=== PATIENT | female | born 1945 | race Caucasian/White ===

== ENCOUNTER 2018-05-11 15:44 | Inpatient (IN) | payer MEDICARE, MEDICAID ==
[2018-05-11 16:33] LABS: % BASOPHILS 0.1 % (0.0-2.0); % EOSINOPHILS 1.2 % (0.0-5.0); % MONOCYTES 10.4 % (2.0-10.0); % NEUTROPHILS 67.3 % (40.0-80.0); EOSINOPHILE ABSOLUTE 0.1 Th/cmm (0.1-0.4); HEMATOCRIT 41.8 % (41.0-60); HEMOGLOBIN 13.7 gm/dL (12-16); LYMPHOCYTE ABSOLUTE 1.6 Th/cmm (1.5-3.0); MEAN CELL VOLUME 89.7 fl (81-100); MEAN CORPUSCULAR HEMOGLOBIN 29.5 pg (27.0-31.0); MEAN CORPUSCULAR HGB CONC 32.9 pg (28.0-36.0); MONOCYTE ABSOLUTE 0.8 Th/cmm (0.3-1.0); NEUTROPHILE ABSOLUTE 4.9 Th/cmm (1.8-8.0); PLATELET COUNT 144 Th/cmm (150-400); RED BLOOD COUNT 4.66 Mil/cmm (3.80-5.20); RED CELL DISTRIBUTION WIDTH 12.4 % (11.5-20.0); WHITE BLOOD COUNT 7.4 Th/cmm (4.8-10.8)
[2018-05-11 16:48] LABS: ALB/GLOB RATIO 1.5 (1.0-1.8); ALBUMIN 4.2 gm/dL (3.7-5.3); ALKALINE PHOSPHATASE 56 U/L (34-104); ANION GAP 9.3 (7.0-16.0); BILIRUBIN,TOTAL 0.8 mg/dL (0.3-1.0); BUN - UREA NITROGEN 15 mg/dL (7-25); CHLORIDE 100 mEq/L (98-107); CREATININE - SERUM 0.5 mg/dL (0.6-1.2); GLUCOSE 92 mg/dL (70-105); POTASSIUM SERUM 4.3 mEq/L (3.5-5.1); SGOT 12 U/L (13-39); SGPT/ALT 11 U/L (7-52); SODIUM SERUM 132 mEq/L (136-145); TOTAL PROTEIN,SERUM 7.1 gm/dL (6.0-8.3)
--- NOTE | 2018-05-11 16:59 | ED Physician Chart ---
ED Chief Complaint/HPI - Patient Information Date Seen:: 05/11/18 Time Seen:: 16:12 Chief Complaint:: psychosis History of Present Illness:: this is a 73 yo female female from the long-term who is here for evaluation and treatment because she is combative and agitation. Allergies:: Allergies Allergy/AdvReac Type Severity Reaction Status Date / Time amoxicillin Allergy Verified 05/11/18 16:16 Vitals:: Vital Signs - 8 hr 05/11/18 16:07 Temp 98.3 F HR 85 RR 16 BP 107/65 O2 Sat % 98 Historian:: EMS, Medical Records Review:: Nurse's Note Reviewed, Old Chart Reviewed, Transfer documents Reviewed ED Review of Systems - Review of Systems General/Constitutional: No fever, No chills, No weight loss, No weakness, No diaphoresis, No edema, No loss of appetite, Other (this patient cannot give a review of systems.) Skin: No skin lesions, No rash, No bruising Head: No headache, No light-headedness Eyes: No loss of vision, No pain, No diplopia ENT: No earache, No nasal drainage, No sore throat, No tinnitus Neck: No neck pain, No swelling, No thyromegaly, No stiffness, No mass noted Cardio Vascular: No chest pain, No palpitations, No PND, No orthopnea, No edema Pulmonary: No SOB, No cough, No sputum, No wheezing GI: No nausea, No vomiting, No diarrhea, No pain, No melena, No hematochezia, No constipation, No hematemesis G/U: No dysuria, No frequency, No hematuria Musculoskeletal: No bone or joint pain, No back pain, No muscle pain Endocrine: No polyuria, No polydipsia Psychiatric: No prior psych history, No depression, No anxiety, No suicidal ideation Hematopoietic: No bruising, No lymphadenopathy Allergic/Immuno: No urticaria, No angioedema Neurological: No syncope, No focal symptoms, No weakness, No paresthesia, No headache, No seizure, No dizziness, No confusion, No vertigo ED Past Medical History - Past Medical History Obtainable: Yes Past Medical History: Dyslipidemia, Arthritis, Dementia, Other (etoh abuse) Family History: None Social History: Non Smoker, No Alcohol, No Drug Use, Care Facility Surgical History: None Psychiatricy History: Schizophrenia, Bipolar, Dementia Medication: Reviewed ED Physical Exam - Physical Examination General/Constitutional: Awake, Well-developed, well-nourished, Alert, No distress, GCS 15, Non-toxic appearing, Ambulatory Other Gen/Cons comments:: this patient is confused and combative Head: Atraumatic Eyes: Lids, conjuctiva normal, PERRL, EOMI Skin: Nl inspection, No rash, No skin lesions, No ecchymosis, Well hydrated, No lymphadenopathy ENMT: External ears, nose nl, Nasal exam nl, Lips, teeth, gums nl Neck: Nontender, Full ROM w/o pain, No JVD, No nuchal rigidity, No bruit, No mass, No stridor Respiratory: Nl effort/Exclusion, Clear to Auscultation, No Wheeze/Rhonchi/Rales Cardio Vascular: RRR, No murmur, gallop, rubs, NL S1 S2 GI: No tenderness/rebounding/guarding, No organomegaly, No hernia, Normal BS's, Nondistended, No mass/bruits, No McBurney tenderness : No CVA tenderness Extremities: No tenderness or effusion, Full ROM, normal strength in all extremities, No edema, Normal digits & nails Neuro/Psych: Alert/oriented, DTR's symmetric, Normal sensory exam, Normal motor strength, Judgement/insight normal, Mood normal, Normal gait, No focal deficits Misc: Normal back, No paraspinal tenderness ED Labs/Radiology/EKG Results - Lab Results Results: Laboratory Tests 05/11/18 05/11/18 16:30 16:30 WBC 7.4 RBC 4.66 Hgb 13.7 Hct 41.8 MCV 89.7 MCH 29.5 MCHC Differential 32.9 RDW 12.4 Plt Count 144 L MPV 7.0 Neutrophils % 67.3 Lymphocytes % 21.0 Monocytes % 10.4 H Eosinophils % 1.2 Basophils % 0.1 Sodium 132 L Potassium 4.3 Chloride 100 Carbon Dioxide 27.0 Anion Gap 9.3 BUN 15 Creatinine 0.5 L Est GFR ( Amer) TNP Est GFR (Non-Af Amer) TNP BUN/Creatinine Ratio 30.0 Glucose 92 Calcium 9.0 Total Bilirubin 0.8 AST 12 L ALT 11 Alkaline Phosphatase 56 Total Protein 7.1 Albumin 4.2 Globulin 2.9 Albumin/Globulin Ratio 1.5 - Radiology Results Results: chest x-ray = nad - EKG Interpretations EKG Time:: 16:33 Rate & Rhythm: rate =74, sinus [place]: right axis ED Assessment - Assessment General Assessment: psychosis ED Septic Shock - . Is Septic Shock (SBP<90, OR Lactate>4 mmol\L) present?: No - <6hrs of presentation: Vital Signs: Vital Signs - 8 hr 05/11/18 16:07 Temp 98.3 F HR 85 RR 16 BP 107/65 O2 Sat % 98 ED Reassessment (Disposition) - Reassessment Reassessment Condition:: Unchanged - Diagnosis Diagnosis:: psychosis - Patient Disposition Discharge/Transfer:: Acute Care w/in this hosp Admitting Medical Physician:: Jacob Chang Admitting Psych Physician:: Britt Reyes Condition at Disposition:: Unchanged
[2018-05-11] MEDS ORDERED: Fleet Enema 135 mL RC PRN (19:12)
[2018-05-11] MEDS ORDERED: Magnesium Hydroxide (MOM) 30 mL UDC PO PRN (19:14)
[2018-05-11] MEDS: Atorvastatin Calcium 10 MG TAB PO SCH (20:43)
--- NOTE | 2018-05-12 09:02 | Diagnostic Imaging Report ---
CHEST X-RAY: AP view INDICATION: pain COMPARISON: None FINDINGS: There is elevation of the right hemidiaphragm. Chronic lung changes are noted. There is no focal consolidation or pleural effusions The heart is normal in size. Atherosclerotic vascular disease is noted. Degenerative changes spine and shoulder joints are noted. 1 cm density seen projecting along the left glenoid which may represent a bone island or possibly calcified lymph node. IMPRESSION: Chronic lung changes and possible COPD. No focal consolidation identified. Atherosclerotic vascular disease.
[2018-05-12] MEDS: Calcium Carb/Vit D 500 mg/200 U Tab PO SCH ×2 (09:38→17:42)
[2018-05-12] MEDS: Hydrocodone/APAP 10 mg/325 mg Tab PO PRN ×3 (09:38→21:01)
[2018-05-12] MEDS: Aspirin 81mg Chewable Tab PO SCH (09:39)
--- NOTE | 2018-05-12 13:06 | Psychiatric Evaluation ---
DATE OF SERVICE: 05/11/2018 IDENTIFYING DATA: The patient is a 73-year-old woman, resident of [facility] in [place]. Information obtained by directly interviewing the patient as well as reviewing the admission papers and they are reliable. JUSTIFICATION FOR HOSPITALIZATION: The patient is admitted here on a voluntary basis in view of her agitation and aggressive behavior towards others. CHIEF COMPLAINT: "I am in pain." HISTORY OF PRESENT ILLNESS: This is the first psychiatric hospitalization to [facility] for this patient who is reported to have been getting easily agitated. The patient's sleep and appetite are noted to be poor. 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 The patient is reported to have been at the shelter facility. 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 The patient is stating that she has a son who is in [place] and she has no other family members around here. PAST PSYCHIATRIC HISTORY: Details are not known. MEDICAL HISTORY: Physical examination is requested to be done by Dr. Arteaga. SUBSTANCE ABUSE HISTORY: None. PHYSICAL OR SEXUAL ABUSE HISTORY: None. LEGAL PROBLEMS: None at this time. STRENGTH AND ASSETS: The patient is motivated. MENTAL STATUS EXAMINATION: The patient is a 73-year-old thin built, cooperative. Eye contact is fair. Mood is irritable. Affect is constricted. Insight and judgment are noted to be still impaired. Impulse control is noted to be limited. Coping skills are noted to be limited. The patient is reported to have been getting easily agitated and aggressive towards others. The patient at this time is not suicidal. The patient's insight and judgment are noted to be very much impaired. Impulse control seems to be poor. Coping skills are also noted to be very poor. The patient is alert and oriented x 3. Attention span and concentration are noted to be fair. Sleep and appetite also noted to be fair. The patient is motivated for treatment at this time, but the patient major concern is pain. DIAGNOSTIC IMPRESSION: AXIS 1. Bipolar disorder, not otherwise specified. B. Dementia and mood changes with the dementia. AXIS II: None. AXIS III: As per Dr. Arteaga. IMMEDIATE TREATMENT PLAN: The patient is going to be continued on the Depakote and Seroquel. ESTIMATED LENGTH OF STAY: 3-5 days. DISCHARGE CRITERIA: When the patient is no longer a threat to self or others and be able to cope up with the stress. JOB# [id number]
[2018-05-12] MEDS: Atorvastatin Calcium 10 MG TAB PO SCH (21:01)
[2018-05-13] MEDS: Calcium Carb/Vit D 500 mg/200 U Tab PO SCH ×2 (09:30→16:15)
[2018-05-13] MEDS: Aspirin 81mg Chewable Tab PO SCH (09:30)
[2018-05-13] MEDS ORDERED: Fleet Enema 135 mL RC PRN (10:35)
[2018-05-13] MEDS ORDERED: Hydrocodone/APAP 10 mg/325 mg Tab PO PRN (10:35)
[2018-05-13] MEDS ORDERED: Aspirin 81mg Chewable Tab PO SCH (10:45)
--- NOTE | 2018-05-13 11:56 | History & Physical ---
ADMIT DATE: 05/13/2018 PATIENT'S IDENTIFICATION: A 73-year-old. CHIEF COMPLAINT: "I don't know why I am here." HISTORY OF PRESENT ILLNESS: A 73-year-old female, resident of [facility], admitted at [facility] on 05/13/2018 for psychiatric treatment and evaluation after the patient was noted to have increasing agitations and aggressive behavior. PAST MEDICAL HISTORY: Remarkable for: 1. DJD. 2. Hyperlipidemia. 3. Osteoarthritis. 4. History of anxiety and depression. MEDICATIONS AT HOME: Tylenol, aspirin, atorvastatin, bisacodyl, multivitamin, Celebrex, cholecalciferol, Depakote, Colace, Fleet's enema, Vicodin, lorazepam, magnesium hydroxide, Seroquel, trazodone. ALLERGIES: The patient is allergic to AMOXICILLIN. SOCIAL HISTORY: The patient resides in a care home. The patient has no history of smoking cigarette, drinking alcohol or using street drug use. FAMILY MEDICAL HISTORY: Remarkable for diabetes. REVIEW OF SYSTEMS: The patient currently denies any headache, blurred vision, double vision, dysphagia, odynophagia, runny nose, stuffy nose, fever, chills, cough, chest pain, shortness of breath, palpitation, dizziness, nausea, vomiting, diarrhea, dysuria, hematuria, hematochezia, melena. No history of any seizure or syncopal episode. PHYSICAL EXAMINATION: GENERAL: Alert, awake, lying in the bed without any acute distress. VITAL SIGNS: Temperature 98.6, pulse 74, respiratory rate 18, blood pressure 138/80. HEENT: Normocephalic, atraumatic. Extraocular muscles are intact. Tongue was pink and coated. Poor dentition noted. No oral lesion, no exudate. No sinus tenderness. External auditory canal and tympanic membranes well visualized. NECK: Supple, no JVD, no hepatojugular reflex. No lymphadenopathy, thyromegaly, or carotid bruit. HEART: Both heart sounds are regular. Grade 2/6 systolic murmur noted. CHEST AND LUNGS: Equal in expansion, no expiratory wheezing. ABDOMEN: Soft. No guarding, no rigidity. Bowel sounds are present. No palpable mass. EXTREMITIES: No edema, no cyanosis or clubbing. Peripheral pulses +2. No calf tenderness noted. NEUROLOGIC: Alert, awake, oriented to time, place, person. 2-12 cranial nerves intact. Power in upper or lower extremities 5-. Sensory touch intact. Babinski's, both toes are going down. No cerebral sign. AVAILABLE DIAGNOSTIC DATA: Performed in the Emergency Room has been reviewed. Total time reviewing the records approximately 5 minutes. CLINICAL IMPRESSION: 1. Hyperlipidemia. 2. Degenerative joint disease. 3. Coronary artery disease. 4. Psychotic disorder. 5. Systolic murmur on exam, most likely from aortic stenosis versus aortic sclerosis. 6. Dementia by history. PLAN: 1. Psychotic evaluation and management deferred to psychiatrist. 2. Symptoms management. 3. Medication management. 4. Fall precautions. 5. Nutritional support. 6. Care plan reviewed and discussed with staff. JOB# [id number]
[2018-05-13] MEDS: Hydrocodone/APAP 10 mg/325 mg Tab PO PRN (16:15)
[2018-05-13] MEDS ORDERED: Calcium Carb/Vit D 500 mg/200 U Tab PO SCH (17:00)
--- NOTE | 2018-05-13 21:21 | Consultation ---
DATE OF CONSULTATION: 05/13/2018 REFERRING PHYSICIAN: Britt Reyes MD TYPE OF CONSULTATION: Psychology. HISTORY OF PRESENT ILLNESS: The patient is a 73-year-old female. The patient is a resident of [facility]. The following is by review of the medical record and by patient's self report. The patient is being admitted due to acute agitation as well as aggressive behavior towards others. Upon interview, the patient states that she was going to the bank so that she could get money to look for a place to stay. The patient does not understand that she is living in a residential facility. The patient appears to be easily agitated and quite confused. The staff at the patient's facility state that she had been getting aggressive with other residents. The patient states that she is not experiencing any suicidal ideation, plan or intention. The patient complained of pain. PAST MEDICAL HISTORY: Please see history and physical by Dr. Arteaga. PAST PSYCHIATRIC HISTORY: Information is unavailable at the time of this clinical interview. SUBSTANCE ABUSE HISTORY: The patient did not answer these questions. PSYCHOSOCIAL HISTORY: The patient did not answer questions about occupational or educational history or samaritan affiliation. The patient denied any history of physical or sexual abuse. The patient stated she has no current legal problems. The patient stated that she has 1 son who lives in [place], but no other family locally or in [place]. MENTAL STATUS EXAMINATION: The patient appears to be her stated age. The patient's attitude is superficially cooperative. Eye contact is fair. Speech is spontaneous. Mood is irritable. Affect is constricted. Thought process shows to be confused. The patient denied any suicidal ideation, plan or intention. The patient denies any auditory or visual hallucinations. The patient's behavior on the unit has been redirectable. Impulse control is limited. Concentration is fair. The patient's sensorium is alert and oriented x 3. The patient is complaining of pain. The patient did not participate in the memory assessment, although the patient's immediate memory seems to be intact. Short term and residential memory need further evaluation. The patient did not participate in the interpretation of proverbs. Insight is impaired. Judgment is impaired. DIAGNOSTIC IMPRESSION: AXIS I: 1. Bipolar disorder, not otherwise specified. 2. Dementia with behavioral disturbance. AXIS II: Deferred. AXIS III: Please see History and Physical by Dr. Arteaga. TREATMENT PLAN: The patient has been seen by Dr. Reyes for psychiatric evaluation and for the management of the patient's psychotropic medications. We will provide supportive psychotherapy to include de-escalation as well as reality orientation and integration. We will provide coping strategies for phase of life issues as well as for chronic severe mental illness. We will encourage the patient to be able to demonstrate emotional and self-regulation prior to her discharge. We will present daily opportunities for the patient to verbally contract for safety. We romy encourage the patient to verbalize her concerns versus verbally acting out with aggression toward others. The record indicates the patient is continued on Depakote and Seroquel. Thank you, Dr. Reyes, for this consult and the opportunity to participate with you in this patient's care. JOB# [id number] YASIR
[2018-05-13] MEDS: Atorvastatin Calcium 10 MG TAB PO SCH (21:33)
--- NOTE | 2018-05-14 02:28 | Progress Notes ---
DATE: 05/13/2018 SUBJECTIVE: Staff was spoken to. The patient is interviewed. Mood is noted to be irritable. Affect is constricted. Insight and judgment is noted to be impaired. Impulse control is limited. Coping skills are noted to be limited. The patient has been having difficult time to cope with the stress. No side effects. The patient has been getting easily agitated. The patient is very paranoid. The patient has been taking her food and then dumping in the toilet. The patient is acting very bizarre. ASSESSMENT: The patient is still very paranoid. PLAN: To continue the patient with the supportive therapy. I encouraged the patient to verbalize the concerns rather than to act out. The patient is currently on the valproic acid and we have started her on low dose of Seroquel. Plan to continue these medications and follow the patient up with supportive therapy. JOB# [id number]
[2018-05-14] MEDS ORDERED: CELECOXIB 200 MG PO SCH (09:00)
[2018-05-14] MEDS: Calcium Carb/Vit D 500 mg/200 U Tab PO SCH ×2 (09:59→18:05)
[2018-05-14] MEDS: Aspirin 81mg Chewable Tab PO SCH (09:59)
[2018-05-14] MEDS: Hydrocodone/APAP 10 mg/325 mg Tab PO PRN (11:41)
[2018-05-14] MEDS: Atorvastatin Calcium 10 MG TAB PO SCH (20:43)
--- NOTE | 2018-05-15 01:02 | Progress Notes ---
DATE: 05/14/2018 PSYCHIATRIC PROGRESS NOTE Staff was spoken to. The patient is interviewed. Mood is noted to be irritable. Affect is constricted. The patient is stating that she has already gotten her pain medications, but she needs sleeping medications. The patient is asking for the sleeping medications starting ___. The patient has no insight into her illness. Coping skills are noted to be very poor. Insight and judgment also noted to be very much impaired. The patient is currently on Seroquel 25 mg and has been able to tolerate the medication. ASSESSMENT: In view of the patient's psychosis and impulsivity, it is decided to increase the dose to 50 mg tonight and follow the patient with the supportive therapy. JOB# [id number]
[2018-05-15] MEDS: Aspirin 81mg Chewable Tab PO SCH (09:30)
[2018-05-15] MEDS: Calcium Carb/Vit D 500 mg/200 U Tab PO SCH ×2 (09:30→17:17)
[2018-05-15] MEDS: Hydrocodone/APAP 10 mg/325 mg Tab PO PRN (17:16)
[2018-05-15] MEDS: Atorvastatin Calcium 10 MG TAB PO SCH (21:03)
--- NOTE | 2018-05-16 02:03 | Progress Notes ---
DATE: 05/15/2018 SUBJECTIVE: Staff was spoken to. The patient is interviewed. Mood is noted to be irritable. Affect is constricted. Insight and judgment at this time are noted to be still impaired. Impulse control is noted to be poor. The patient is very disruptive and has been very demanding. Coping skills are noted to be very poor. The patient has been displaying acute mood swings and has been verbally abusive. ASSESSMENT: The patient is still impulsive. PLAN: To continue the patient with the Depakote and Seroquel, which is being given at 50 mg at bedtime and plan to continue the patient with supportive therapy and followup. JOB# [id number]
[2018-05-16] MEDS: Calcium Carb/Vit D 500 mg/200 U Tab PO SCH ×2 (09:05→17:06)
[2018-05-16] MEDS: Aspirin 81mg Chewable Tab PO SCH (09:05)
[2018-05-16] MEDS: Hydrocodone/APAP 10 mg/325 mg Tab PO PRN ×2 (11:15→18:02)
[2018-05-16] MEDS: Atorvastatin Calcium 10 MG TAB PO SCH (20:37)
--- NOTE | 2018-05-17 00:40 | Progress Notes ---
DATE: 05/16/2018 PSYCHIATRIC PROGRESS NOTE SUBJECTIVE: Staff was spoken to. The patient is interviewed. Mood is noted to be irritable. Affect is constricted. Insight and judgment at this time are noted to be impaired. Impulse control is limited. The patient is very demanding. The patient wants to have the sleeping medication at 1 o'clock or 3 o'clock in the afternoon. The patient has no insight into her illness. The patient is getting easily irritable and angry. ASSESSMENT: The patient is still paranoid. PLAN: To continue the patient with the current medications and followup. JOB# [id number]
[2018-05-17] MEDS: Calcium Carb/Vit D 500 mg/200 U Tab PO SCH ×2 (08:45→16:38)
[2018-05-17] MEDS: Aspirin 81mg Chewable Tab PO SCH (08:45)
[2018-05-17] MEDS: Hydrocodone/APAP 10 mg/325 mg Tab PO PRN (13:03)
[2018-05-17] MEDS: Atorvastatin Calcium 10 MG TAB PO SCH (20:33)
--- NOTE | 2018-05-18 00:01 | Progress Notes ---
DATE: 05/17/2018 PSYCHIATRIC PROGRESS NOTE SUBJECTIVE: Staff was spoken to. The patient is interviewed. Mood is noted to be irritable. Affect is constricted. Insight and judgment at this time are noted to be still impaired. Impulse control is noted to be limited. Coping skills are noted to be limited. The patient has been having difficult time to cope with the stress. No side effects to the medications are noted. ASSESSMENT: The patient is still impulsive and paranoid. PLAN: To continue the patient with the supportive therapy and followup. JOB# [id number]
[2018-05-18] MEDS: Calcium Carb/Vit D 500 mg/200 U Tab PO SCH ×2 (09:00→16:36)
[2018-05-18] MEDS: Aspirin 81mg Chewable Tab PO SCH (09:00)
[2018-05-18] MEDS: Hydrocodone/APAP 10 mg/325 mg Tab PO PRN (13:52)
[2018-05-18] MEDS: Atorvastatin Calcium 10 MG TAB PO SCH (21:21)
--- NOTE | 2018-05-18 23:05 | Progress Notes ---
DATE: 05/18/2018 SUBJECTIVE: The patient seen and examined. The patient is lying in the bed. Upon further questioning, the patient denies any chest pain, short of breath, palpitation, dizziness, nausea, vomiting. The patient wants to go home. PHYSICAL EXAMINATION: VITAL SIGNS: Temperature 98.7, pulse is 64, respiratory rate 18, and blood pressure 144/80. HEENT: No facial asymmetry. NECK: Supple, no JVD. HEART: Regular. CHEST AND LUNGS: Equal in expansion, no expiratory wheezing. ABDOMEN: Soft. No guarding or rebound. Positive bowel sounds. No palpable mass. EXTREMITIES: No edema. NEUROLOGIC: Nonfocal. CLINICAL IMPRESSION: 1. Coronary artery disease. 2. Hyperlipidemia. 3. Degenerative joint disease. 4. Aortic stenosis. 5. Dementia. PLAN: 1. Psychiatric evaluation and management deferred to psychiatrist. 2. Continue statin. 3. Medical management for coronary artery disease. 4. Fall precautions. 5. Nutritional support. 6. General nursing care. 7. Care plan reviewed with staff. JOB# [id number]
--- NOTE | 2018-05-19 01:36 | Progress Notes ---
DATE: 05/18/2018 PSYCHIATRIC PROGRESS NOTE SUBJECTIVE: Staff was spoken to. The patient is interviewed. Mood is noted to be irritable. Affect is constricted. Coping skills at this time are noted to be poor. Sleep and appetite are also noted to be very poor. The patient has been having difficult time to cope with the stress. The patient has been getting into other people's rooms and then trying to advise them. The patient has no insight into her illness. ASSESSMENT: The patient is still impulsive and paranoid. Mood swings are a concern for this patient. PLAN: To continue the patient with supportive therapy. I encouraged the patient to verbalize the concerns rather than to act out. The patient is asking for medications too often and too early. The patient is currently on 250 mg of Depakote and Seroquel 100 mg at bedtime. Plan to continue this patient with the current medications and follow up. JOB# [id number]
[2018-05-19] MEDS: Calcium Carb/Vit D 500 mg/200 U Tab PO SCH ×2 (08:14→16:05)
[2018-05-19] MEDS: Aspirin 81mg Chewable Tab PO SCH (08:14)
--- NOTE | 2018-05-19 14:18 | Progress Notes ---
DATE: 05/19/2018 SUBJECTIVE: Staff was spoken to. The patient is interviewed. Mood is noted to be irritable. Affect is constricted. The patient is getting easily frustrated, but could be redirectable. Paranoia is noted, but no command hallucinations are noted. ASSESSMENT: The patient's psychosis and impulsivity is resolving. PLAN: To continue the patient with the current medications and followup. JOB# [id number]
[2018-05-19] MEDS: Atorvastatin Calcium 10 MG TAB PO SCH (20:39)
[2018-05-20] MEDS: Calcium Carb/Vit D 500 mg/200 U Tab PO SCH (08:29)
[2018-05-20] MEDS: Aspirin 81mg Chewable Tab PO SCH (08:29)
--- NOTE | 2018-05-20 12:18 | Progress Notes ---
DATE: 05/20/2018 IDENTIFICATION: A 73-year-old female. The patient seen and examined. The patient is ambulatory, unable to get meaningful history from the patient. PHYSICAL EXAMINATION: VITAL SIGNS: Temperature 98.7, pulse 74, respiration was 18, blood pressure 130/80. HEENT: No facial asymmetry. NECK: Supple, no JVD. HEART: Irregular. Grade 2/6 systolic murmur noted. CHEST: Lung equal in expansion, expiratory wheezing. ABDOMEN: Soft, no guarding active bowel sounds. No palpable mass. EXTREMITIES: No edema. NEUROLOGIC: Alert and awake, follows command. Medication admission record is reviewed. CLINICAL IMPRESSION: 1. Coronary artery disease. 2. Hyperlipidemia. 3. Degenerative joint disease. 4. Systolic murmur. 5. Dementia. PLAN: 1. Statin. 2. CVA prophylaxis. 3. Medication management. 4. Psychotic evaluation and management deferred to psychiatrist. 5. General nursing care. 6. Symptoms management. 7. Medication management. 8. Care plan reviewed. JOB# [id number]
--- NOTE | 2018-05-20 21:05 | Progress Notes ---
DATE: 05/20/2018 SUBJECTIVE: Staff was spoken to. The patient is interviewed. Mood is noted to be less irritable. Affect is appropriate. Coping skills are noted to be improving, but the patient has forgetfulness. The patient is asking the same medication over and over. The patient is not impulsive at this time. ASSESSMENT: The patient's psychosis is resolving, but the patient is demented. PLAN: To continue the patient with the supportive therapy and followup. JOB# [id number]
== END 2018-05-20 15:30 | DRG 885 ==
LOC: ER 15:44 → GERO2 16:50
PROVIDERS: ADMIT Psychiatry & Neurology Psychiatry; ATTEND Psychiatry & Neurology Psychiatry
DX: F31.9 Bipolar disorder, unspecified (principal); F03.91 Unspecified dementia, unspecified severity, with behavioral disturbance; F29 Unspecified psychosis not due to a substance or known physiological condition; E78.5 Hyperlipidemia, unspecified; F20.9 Schizophrenia, unspecified; M19.90 Unspecified osteoarthritis, unspecified site; I25.10 Atherosclerotic heart disease of native coronary artery without angina pectoris; R01.1 Cardiac murmur, unspecified
CPT/HCPCS: 36415-UA; 71045-TC; 80053-TC; 84443-TC; 84484-TC; 85025-TC; 93005; Z7610